=== PATIENT | female | born 2000 | race Asian ===

== ENCOUNTER 2022-05-11 07:20 | Emergency (ER) | payer OTHER ==
[~2022-05-11] VITALS: Ht 157.5 cm; Wt 46.0 kg
[2022-05-11] MEDS ORDERED: LOPE2CAP14 MT (08:15)
[2022-05-11 08:32] VITALS: BP 116/59
== END 2022-05-11 08:33 | disposition home or self-care (01) ==
LOC: ER 08:04
DX: R19.7 Diarrhea, unspecified (principal); K40.90 Unilateral inguinal hernia, without obstruction or gangrene, not specified as recurrent
CPT/HCPCS: 99283